=== PATIENT | male | born 1935 | race Caucasian/White ===

== ENCOUNTER 2017-10-06 16:26 | Inpatient (IN) | payer OTHER ==
[~2017-10-06] VITALS: Ht 182.9 cm; Wt 106.6 kg
--- NOTE | ~2017-10-06 | EKG ---
[address] [address] ELECTROCARDIOGRAM REPORT Name: GIRMA AGUILAR Room #: 450-P ADM IN M.R.#: [id number] Admission: 10/06/17 Attend Phys: Pio Little Discharge: Date of : 31 Report #: [id number] THIS REPORT FOR: //name// [facility] ED Test Date: 2017-10-06 Test Time: 16:40:06 Pat Name: GIRMA AGUILAR Department: Room: 450 P Gender: M Lime Slaker: NANI : 1935 Requested By: Pio Little Order Number: [id number] MD: Hemant Farah Measurements Intervals [place] Rate: 133 P: -71 AL: 131 QRS: 5 QRSD: 96 T: 36 QT: 342 QTc: 509 Interpretive Statements Atrial fibrillation Repolarization abnormality, prob rate related No previous ECG available for comparison Electronically Signed On 10-09-2017 7:57:18 CDT by Hemant Farah [email or web address] <ELECTRONICALLY SIGNED> By: Hemant Farah MD 10/09/17 0757 1640 MD MARLYN Rasheed
[2017-10-06 16:27] VITALS: BP 127/53
[2017-10-06 16:49] LABS: ABSOLUTE NEUTROPHILS 1.7 thou/uL (1.4-8.2); BASOPHILS 1.4 % (0.0-2.0); EOSINOPHILS 4.1 % (0.0-3.0); HEMOGLOBIN 11.5 gm/dL (14.0-18.0); LYMPHOCYTES 32.9 % (24.0-44.0); MCH 29.4 pg (26.0-34.0); MCHC 33.8 g/dL (28.0-37.0); MCV 87.1 fL (80.0-100.0); MONOCYTES 10.7 % (1.0-8.0); PLATELET COUNT 204 thou/uL (150-400); POLYS 50.9 % (36.0-66.0); RBC 3.91 mil/uL (4.50-6.00); RDW 14.9 % (10.5-14.5); WBC 3.3 thou/uL (4.0-11.0)
[2017-10-06 16:53] LABS: CALCIUM 9.4 mg/dL (8.5-10.1); CREATININE 2.1 mg/dL (0.7-1.3)
[2017-10-06 18:14] LABS: URINE BILIRUBIN NEGATIVE (Negative); URINE BLOOD NEGATIVE (Negative); URINE CLARITY CLEAR; URINE COLOR YELLOW; URINE GLUCOSE-RANDOM* NEGATIVE (Negative); URINE KETONES NEGATIVE (Negative); URINE LEUKOCYTES-REFLEX NEGATIVE (Negative); URINE NITRITE-REFLEX NEGATIVE (Negative); URINE PROTEIN (DIPSTICK) NEGATIVE (Negative); URINE SPECIFIC GRAVITY 1.015 (1.005-1.035); URINE UROBILINOGEN 0.2 E.U./dl (0.2-1.0)
[2017-10-06] MEDS ORDERED: LANTUS SOL100 UNIT/1 SUBQ (18:24)
[2017-10-06] MEDS ORDERED: GLIPIZIDE ER5 MG PO (18:24)
[2017-10-06] MEDS ORDERED: ASPIR 8181 MG PO (18:25)
[2017-10-06] MEDS ORDERED: LASIX 20 MG TAB20 MG PO (18:25)
[2017-10-06 18:30] LABS: AMP/METHAMP Negative (Negative); BARBITURATES Negative (Negative); BENZODIAZEPINES Negative (Negative); COCAINE Negative (Negative); METHADONE Negative (Negative); OPIATES Negative (Negative); PCP Negative (Negative)
[2017-10-06 18:51] LABS: CHOLESTEROL 175 mg/dL (<200); HDL CHOLESTEROL 43 mg/dL (>40); LDL CHOLESTEROL 122 mg/dL (<100); TC:HDL 4.1 Ratio (Not establshd); TRIGLYCERIDE 54 mg/dL (<150); VLDL 11 mg/dL (<40)
[2017-10-06 19:02] VITALS: BP 92/52
[2017-10-06 19:45] VITALS: BP 126/83
[2017-10-07 03:54] VITALS: BP 113/65
[2017-10-07 06:11] LABS: HEMATOCRIT 29.2 % (42.0-52.0); HEMOGLOBIN 10.1 gm/dL (14.0-18.0); MCH 29.8 pg (26.0-34.0); MCHC 34.4 g/dL (28.0-37.0); MCV 86.5 fL (80.0-100.0); RBC 3.38 mil/uL (4.50-6.00); RDW 14.6 % (10.5-14.5); WBC 3.4 thou/uL (4.0-11.0)
[2017-10-07 06:18] LABS: CALCIUM 8.5 mg/dL (8.5-10.1); PHOSPHORUS 3.5 mg/dL (2.5-4.9); POTASSIUM 3.2 mmol/L (3.5-5.1)
[2017-10-07 08:19] VITALS: BP 126/78
[2017-10-07 16:18] VITALS: BP 117/64
[2017-10-07 19:00] VITALS: BP 115/64
[2017-10-08 03:41] VITALS: BP 117/61
[2017-10-08 04:38] LABS: ALBUMIN 2.8 g/dL (3.4-5.0); CALCIUM 8.5 mg/dL (8.5-10.1); CREATININE 1.7 mg/dL (0.7-1.3); POTASSIUM 3.6 mmol/L (3.5-5.1)
[2017-10-08 07:30] VITALS: BP 123/70
[2017-10-08 15:30] VITALS: BP 128/74
[2017-10-08 20:00] VITALS: BP 132/72
[2017-10-09 04:30] VITALS: BP 132/72
[2017-10-09 04:52] LABS: ALBUMIN 2.9 g/dL (3.4-5.0); CALCIUM 8.3 mg/dL (8.5-10.1); CREATININE 1.6 mg/dL (0.7-1.3); POTASSIUM 3.9 mmol/L (3.5-5.1)
[2017-10-09 07:28] VITALS: BP 130/76
[2017-10-09 11:16] VITALS: BP 130/76
== END 2017-10-09 15:38 | disposition home health service (06) | DRG 682 ==
LOC: EDBD 16:26 → ER 16:26 → 4W 18:19 → EROBS 18:19 → 4W 19:26 → ENTRNSPT 10-09 15:42 → EDTRNSPTSTS 10-09 15:47
PROVIDERS: Emergency Medicine; Hospitalist
DX: N17.0 Acute kidney failure with tubular necrosis (principal); G93.40 Encephalopathy, unspecified; T67.0XXA Heatstroke and sunstroke, initial encounter; M62.82 Rhabdomyolysis; I10 Essential (primary) hypertension; E11.9 Type 2 diabetes mellitus without complications; E86.0 Dehydration; X58.XXXA Exposure to other specified factors, initial encounter; Z86.73 Personal history of transient ischemic attack (TIA), and cerebral infarction without residual deficits; Z79.4 Long term (current) use of insulin; Z79.82 Long term (current) use of aspirin; Z79.899 Other long term (current) drug therapy; Y93.89 Activity, other specified; Y92.89 Other specified places as the place of occurrence of the external cause; Y99.8 Other external cause status
CPT/HCPCS: 10045

== ENCOUNTER 2018-12-03 17:44 | Emergency (ER) | payer OTHER ==
[~2018-12-03] VITALS: Ht 182.9 cm; Wt 106.1 kg
[~2018-12-03 17:44] MED LIST: ASPIR 8181 MG PO; GLIPIZIDE ER5 MG PO; HYDROCHLOROTHIA25 M2 PO; KLOR-CON 1010 MEQ PO; LANTUS SOL100 UNIT/1 SUBQ; LASIX 20 MG TAB20 MG PO
[2018-12-03] MEDS ORDERED: PENICILLIN V P500 MG PO (18:11)
[2018-12-03 18:20] VITALS: BP 124/72
== END 2018-12-03 18:20 | disposition home or self-care (01) ==
LOC: ER 17:44
DX: K04.7 Periapical abscess without sinus (principal); I10 Essential (primary) hypertension; E11.9 Type 2 diabetes mellitus without complications; Z79.4 Long term (current) use of insulin; Z86.69 Personal history of other diseases of the nervous system and sense organs

== ENCOUNTER 2019-04-09 17:25 | Inpatient (IN) | payer OTHER ==
[~2019-04-09] VITALS: Ht 182.9 cm; Wt 119.9 kg
--- NOTE | ~2019-04-09 | HC ---
[facility] [place] [address] [place] [address] CONSULTATION Name: GIRMA AGUILAR Room #: 213-P ADM IN M.R.#: [id number] Admission: 04/09/19 Attend Phys: Stephon Emerson MD Discharge: Date of : 33 Report #: [id number] THIS REPORT FOR: //name// [facility] CONSULTATION REQUESTING PHYSICIAN: Dr. Dumont. CHIEF COMPLAINT: Spontaneous bacterial peritonitis. HISTORY OF PRESENT ILLNESS: The patient is an 83-year-old male who presented originally to [facility] on April 09, appeared to have multiple complications including hypoxic respiratory failure due to pneumonia. He was found to have group B strep septicemia subsequently and spontaneous bacterial peritonitis is felt to be the origin of this. The patient has also had bilateral lower extremity cellulitis. He was newly diagnosed with cirrhosis and ascites and thrombocytopenia was also found. He had a transfusion for anemia of chronic disease. Additionally, he has a history of cerebrovascular disease, status post stroke with right-sided weakness. At this point in time, the patient is listed as full code. The patient will awake to verbal stimuli. Denies any current discomfort including pain or air hunger. He wishes his daughter to make decisions for him. PAST MEDICAL HISTORY: Again, discovered to have cirrhosis. Additionally, hypertension, type 2 diabetes, right-sided weakness secondary to stroke, bilateral lower extremity venous stasis, dementia, CKD III, chronic neuropathy, anemia. FAMILY HISTORY: Unknown. SOCIAL HISTORY: No tobacco, alcohol or illicit drug use. ALLERGIES: No known drug allergies. MEDICATIONS: Currently, Lasix 20 mg daily, Augmentin, famotidine, heparin. REVIEW OF SYSTEMS: Difficult to obtain at this time, although he denies any kind of pain, air hunger, any nausea. PHYSICAL EXAMINATION: VITAL SIGNS: Temperature 36.6, pulse rate 98, respirations 20, blood pressure 141/64, 95% on room air. GENERAL: The patient is alert, but his attention level appears to be poor. He has poor immediate recall. [facility] [address] [place] [address] CONSULTATION Name: GIRMA AGUILAR Room #: 213-P ADM IN M.R.#: [id number] Admission: 04/09/19 Attend Phys: Stephon Emerson MD Discharge: Date of : 33 Report #: [id number] CARDIOVASCULAR: Appears to be regular rate and rhythm without murmur at this time. LUNGS: Anteriorly clear to auscultation. No respiratory distress, no accessory muscle use. ABDOMEN: Nontender to palpation. Positive bowel sounds noted, but they are diminished, not significantly distended. LABORATORY DATA: These include hemoglobin 7.9, platelets 138, creatinine 1.4, magnesium 1.7. ASSESSMENT AND PLAN: 1. Cirrhosis. This is a contributing factor overall. I have discussed with the patient's daughter that certainly spontaneous bacterial peritonitis does not anmol well for long-term prognosis; however, I did discuss that this alone may be amenable to further treatment and potentially in the future would be something that is manageable. However, the patient additionally has had poor p.o. intake and has dysphagia. Certainly, there is concern that he would have continued poor p.o. intake and therefore lead to overall high risk of mortality. PEG tube has been discussed. Certainly, GI had talked about this option; however, he may not be a good candidate certainly right now. This is possible in the future, but again given his cirrhosis, ascites and potential for recurrent spontaneous bacterial peritonitis, he may not be a good candidate for in the future. Certainly, I did present that to the daughter, did present that overall in these types of cases with multiple medical conditions, PEG tube alone may not be sufficient to improve the overall condition or life expectancy. However, I did discuss that this would be a good thing to discuss with family members. She has 7 siblings and will discuss that with those further, to discuss advanced directive in particular including CPR and mechanical ventilation and that that would be a reasonable thing to discuss as well with family. They will discuss and get back to me on decisions with regards to care. 2. Spontaneous bacterial peritonitis, again discussed as above. 3. Delirium, possible superimposed on dementia, but currently unable to make what appears to be competent or capacity decisions. Discussed this with daughter at this time. They are to meet to discuss further medical care. 4. Pneumonia, possibly of aspiration type, but certainly could be of other origin as well. I am concerned for dysphagia and then overall caloric intake. The patient may not have good prognosis secondary to this. We will continue to discuss with family as they meet and further discussion in the future. By: [id number] Fermin Aguilar DO /nt
[~2019-04-09 17:25] MED LIST changes: +PENICILLIN V P500 MG PO
[2019-04-09 17:26] VITALS: BP 145/71
[2019-04-09 18:05] LABS: ANION GAP 4 mmol/L (7-16); BUN 35 mg/dL (7-18); CALCIUM 9.2 mg/dL (8.5-10.1); CHLORIDE 107 mmol/L (98-107); CO2 28 mmol/L (21-32); CREATININE 1.9 mg/dL (0.7-1.3); GLUCOSE 94 mg/dL (74-106); POTASSIUM 5.8 mmol/L (3.5-5.1); SODIUM 139 mmol/L (136-145)
[2019-04-09 18:06] LABS: ABSOLUTE NEUTROPHILS 5.5 thou/uL (1.4-8.2); BASOPHILS 0.5 % (0.0-2.0); EOSINOPHILS 1.5 % (0.0-3.0); HEMOGLOBIN 7.8 gm/dL (14.0-18.0); LYMPHOCYTES 19.1 % (24.0-44.0); MCH 28.8 pg (26.0-34.0); MCHC 32.5 g/dL (28.0-37.0); MCV 88.7 fL (80.0-100.0); MONOCYTES 3.5 % (1.0-8.0); PLATELET COUNT 119 thou/uL (150-400); POLYS 75.4 % (36.0-66.0); RBC 2.71 mil/uL (4.50-6.00); RDW 17.1 % (10.5-14.5); WBC 7.2 thou/uL (4.0-11.0)
[2019-04-09 18:15] LABS: ALBUMIN 3.5 g/dL (3.4-5.0); SGOT 51 U/L (15-37); SGPT 34 U/L (30-65); TOTAL BILIRUBIN 0.4 mg/dL (<0.1-1.0); TOTAL PROTEIN 7.6 g/dL (6.4-8.2); TROPONIN-I <0.06 ng/mL (<0.06)
[2019-04-09 18:26] LABS: URINE BILIRUBIN NEGATIVE (Negative); URINE BLOOD NEGATIVE (Negative); URINE CLARITY CLEAR; URINE COLOR YELLOW; URINE GLUCOSE-RANDOM* NEGATIVE (Negative); URINE KETONES NEGATIVE (Negative); URINE LEUKOCYTES-REFLEX TRACE (Negative); URINE NITRITE-REFLEX NEGATIVE (Negative); URINE PROTEIN (DIPSTICK) NEGATIVE (Negative); URINE SPECIFIC GRAVITY 1.025 (1.005-1.035); URINE UROBILINOGEN 0.2 E.U./dl (0.2-1.0)
[2019-04-09 18:34] LABS: BE(vivo) -3.4 mmol/L (-2 to +3); PCO2 34.7 mmHg (35.0-45.0); PO2 98.4 mmHg (80.0-100.0); pH 7.399 (7.360-7.450); sO2 97.5 % (92.0-98.0)
[2019-04-09] MEDS ORDERED: FUROSEMIDE 20 M20 MG PO (22:00)
[2019-04-09] MEDS ORDERED: LISINOPRIL10 MG PO (22:01)
[2019-04-09] MEDS ORDERED: GLIPIZIDE 10 MG10 MG PO (22:01)
[2019-04-09] MEDS ORDERED: KLOR-CON M2020 MEQ PO (22:02)
[2019-04-09] MEDS ORDERED: TOPROL XL50 MG PO (22:02)
[2019-04-09] MEDS ORDERED: GABAPENTIN 100100 MG PO (22:02)
[2019-04-09] MEDS ORDERED: ATORVASTATIN CA80 MG PO (22:02)
[2019-04-09 23:55] VITALS: BP 110/52
[2019-04-10] VITALS (24 sets, daily range): BP systolic 103–134; BP diastolic 53–73
--- NOTE | 2019-04-10 06:28 | NUR ---
PATIENT ADMITTED FROM ED DEPARTMENT AT 0100, ALERT TO SELF AND SITUATION, NOT ORIENTED TO TIME. PATIENT COMPLAINED OF ABDOMINAL PAIN RELIEVED WITH MEDICATION. SHORTNESS OF BREATH WITH INCREASED ACTIVITY. PLAN TO HAVE PARACENTESIS TODAY. PLAN OF CARE DISCUSSED WITH PATIENT. NO SIGNS OF ACUTE DISTRESS NOTED AT THIS TIME. WILL CONTINUE TO MONITOR.
[2019-04-10 06:31] LABS: INR 1.1; PROTIME 11.7 Seconds (9.3-11.4)
[2019-04-10 06:33] LABS: % SATURATION 5 % (20-39); IRON 10 ug/dL (65-175); TIBC 184 ug/dL (250-450)
[2019-04-10 06:35] LABS: BASOPHILS 0.3 % (0.0-2.0); CALCIUM 7.9 mg/dL (8.5-10.1); CREATININE 1.9 mg/dL (0.7-1.3); EOSINOPHILS 0.1 % (0.0-3.0); POTASSIUM 5.5 mmol/L (3.5-5.1); RBC 2.16 mil/uL (4.50-6.00); RDW 17.1 % (10.5-14.5)
[2019-04-10 06:38] LABS: ABSOLUTE NEUTROPHILS 9.5 thou/uL (1.4-8.2); LYMPHOCYTES 15.9 % (24.0-44.0); MCH 28.9 pg (26.0-34.0); MCHC 32.4 g/dL (28.0-37.0); MONOCYTES 4.7 % (1.0-8.0); PLATELET COUNT 96 thou/uL (150-400)
[2019-04-10 06:39] LABS: HEMOGLOBIN 6.2 gm/dL (14.0-18.0)
[2019-04-10 06:40] LABS: HEMATOCRIT 19.2 % (42.0-52.0)
--- NOTE | 2019-04-10 08:38 | EKG ---
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
[2019-04-10 10:49] LABS: FOLIC ACID 16.5 ng/mL (8.6-58.9)
[2019-04-10 11:01] LABS: CLARITY TURBID; COLOR PINK; SOURCE ABDOMINAL FLUID; TOTAL VOLUME 15 mL
[2019-04-10 12:56] LABS: BF NUCLEATED CELLS 5252; BF RBC 21547
[2019-04-10 13:15] LABS: BF NEUTROPHILS 8
[2019-04-10 13:18] LABS: BF MACROPHAGE 29
[2019-04-10 15:44] LABS: HEMATOCRIT 20.4 % (42.0-52.0); HEMOGLOBIN 6.5 gm/dL (14.0-18.0)
--- NOTE | 2019-04-10 15:48 | NUR ---
Case opened to follow for dc planning. Pt is currently in ICU with sev sepsis and pneumonia. He is alert and able to report that he is a ltc resident at [facility] for about a year now. He is up in a w/c at the long-term via a lift. He notes that his dtr Fernanda is his dpoa and dtr oJse Luis the alternate. A copy of the document is on the chart. Fernanda was here earlier today. [facility] is holding his bed and the dc search planner will fax them his admission h/p. Dc plan is to return to the long-term at when medically stable. Support provided. Will follow.
--- NOTE | 2019-04-10 16:10 | NUR ---
FAXED CLINICAL UPDATE TO [facility] SPOKE WITH BARBER IN ADM SHE RECEIVED UPDATE. DP TO FOLLOW.
--- NOTE | 2019-04-10 16:43 | NUR ---
PT IS ALERT TO SELF AND PLACE CONFUSED ON TIME. PARACENTESIS TODAY 1 LITER TAKEN OFF TODAY. AND SENT TO LAB. 1 UNIT OF BLOOD GIVEN FOR LOW HEMOGLOBIN. ABDOMEN IS ROUND AND DISTENDED BOWEL SOUNDS HYPOACTIVE. CONDOM CATH PLACED ON PT DUE TO INCONTINENT OF URINE IN THE BED. LUNGS ARE DIMINISHED ON 3 LITERS NASAL CANULA. FAMILY AT BEDSIDE TODAY TO VISIT FOR SUPPORT. TRANSFER ORDERS TO ROOM 213 AWAITING A ROOM AVAIALBE PER NURSING
[2019-04-10 17:58] LABS: ABSOLUTE RETIC COUNT 0.0343 10^6/uL; OBSERVED RETIC COUNT 1.51 % (0.6-2.6)
--- NOTE | 2019-04-10 19:44 | NUR ---
PATIENT ARRIVED FROM ICU VIA, ALERT TO SELF AND SITUATION, VSS AND ST ON THE MONITOR. AND WILL CONTINUE POC.
[2019-04-11 03:53] VITALS: BP 107/58
--- NOTE | 2019-04-11 06:48 | NUR ---
ASSUMED PT CARE AT 1900. PT A/OX3, OCCASIONALLY CONFUSED, EASY TO REORIENT. VITALSIGNS STABLE, ASSESSMENT CHARTED. NO COMPLAINTS OF PAIN. PT CONTINUES TO HAVE PRODUCTIVE COUGH. SPUTUM SAMPLE SENT TO LAB. PT RECIEVED 1 UNIT OF BLOOD, TOLERATED APPROPRIATELY, NO REACTIONS, VITAL SIGNS REMAINED STABLE, BEFORE, DURING AND AFTER TRANSFUSION. PT RESTED WELL THROUGH THE NIGHT. PROGRESSING TOWARD PLAN OF CARE, WILL CONTINUE TO MONITOR.
[2019-04-11 08:00] VITALS: BP 114/61
[2019-04-11 08:03] LABS: ABSOLUTE NEUTROPHILS 7.4 thou/uL (1.4-8.2); BASOPHILS 0.3 % (0.0-2.0); EOSINOPHILS 0.2 % (0.0-3.0); HEMATOCRIT 21.5 % (42.0-52.0); LYMPHOCYTES 22.2 % (24.0-44.0); MCH 28.5 pg (26.0-34.0); MCHC 32.6 g/dL (28.0-37.0); MCV 87.4 fL (80.0-100.0); POLYS 73.3 % (36.0-66.0); RBC 2.46 mil/uL (4.50-6.00); RDW 17.9 % (10.5-14.5); WBC 10.1 thou/uL (4.0-11.0)
[2019-04-11 08:07] LABS: PLATELET COUNT 96 thou/uL (150-400)
[2019-04-11 08:23] LABS: ALBUMIN 2.5 g/dL (3.4-5.0); CALCIUM 7.9 mg/dL (8.5-10.1); CREATININE 1.8 mg/dL (0.7-1.3); MAGNESIUM 2.5 mg/dL (1.8-2.4); POTASSIUM 4.7 mmol/L (3.5-5.1); TOTAL BILIRUBIN 0.6 mg/dL (<0.1-1.0); TOTAL PROTEIN 6.2 g/dL (6.4-8.2)
[2019-04-11 12:00] VITALS: BP 115/71
--- NOTE | 2019-04-11 13:59 | NUR ---
WOUND CARE CONSULT; NO WOUNDS WERE IDENTIFIED. THE BILATERAL LE(S) HAVE S/S CONSISTENT WITH CHRONIC EDEMA WITH DRY, SCALLY SKIN PRESENT BELOW THE KNEES. RECOMMENDATIONS; AMYLACTIN CREAM DAILY TO BILATERAL LE DISCUSSED WITH STAFF
[2019-04-11 14:11] LABS: BODY FLUID LDH 218 IU/L (()); BODY FLUID PROTEIN 3.6 g/dL (())
--- NOTE | 2019-04-11 15:46 | 2DMMODE ---
[facility] [address] [place] [address] 2 D/M-MODE ECHOCARDIOGRAM Name: LAURENGIRMA Room #: 213-P ADM IN M.R.#: [id number] Admission: 04/09/19 Attend Phys: Stephon Emerson MD Discharge: Date of : 33 Report #: [id number] THIS REPORT FOR: //name// APPROVED REPORT Study performed: 04/11/2019 14:57:04 EXAM: Comprehensive 2D, Doppler, and color-flow Echocardiogram Patient Location: Bedside Room #: 213 Status: routine BSA: 2.39 HR: 96 bpm BP: 115/71 mmHg Rhythm: NSR Other Information Study Quality: Good Indications Pulmonary vascular congestion. Respiratory failure. Hx: HTN, DM, CVA 2D Dimensions RVDd: 40.84 mm IVSd: 11.19 (7-11mm) LVOT Diam: 25.67 (18-24mm) LVDd: 50.40 mm PWd: 8.90 (7-11mm) Ascending Ao: 39.62 (22-36mm) LVDs: 38.27 (25-40mm) Aortic Root: 44.30 mm Volumes Left Atrial Volume (Systole) Single Plane 4CH: 73.42 mL Single Plane 2CH: 80.96 mL LA ESV Index: 37.00 mL/m2 Aortic Valve AoV Peak Jonas.: 1.40 m/s AO Peak Gr.: 7.84 mmHg LVOT Max P.22 mmHg LVOT Max V: 1.14 m/s ANTHONY Vmax: 4.22 cm2 Mitral Valve E/A Ratio: 1.4 MV Decel. Time: 161.89 ms [facility] [address] [place] [address] 2 D/M-MODE ECHOCARDIOGRAM Name: GIRMA AGUILAR Room #: 213-P ADM IN .R.#: [id number] Admission: 04/09/19 Attend Phys: Stephon Emerson MD Discharge: Date of : 33 Report #: [id number] MV E Max Jonas.: 0.90 m/s MV A Jonas.: 0.63 m/s MV PHT: 46.95 ms IVRT: 34.60 ms Pulmonary Valve PV Peak Jonas.: 1.14 m/s PV Peak Gr.: 5.19 mmHg Pulmonary Vein P Vein S: 0.63 m/s P Vein D: 0.51 m/s P Vein S/D Ratio: 1.24 Tricuspid Valve TR Peak Jonas.: 3.02 m/s RAP Estimate: 10.00 mmHg TR Peak Gr.: 37.00 mmHg PA Pressure: 47.00 mmHg Left Ventricle The left ventricle is normal size. Mild basal septal hypertrophy is present. Left ventricular systolic function is normal. LVEF is 55%. This study is not technically sufficient to allow evaluation of the LV diastolic function. Right Ventricle The right ventricle is normal size. The right ventricular systolic function is normal. Atria Left atrium is mildly dilated. The right atrium size is normal. Aortic Valve The aortic valve is normal in structure. Mild aortic regurgitation. There is no aortic valvular stenosis. Mitral Valve Mitral valve leaflets are mildly thickened. Moderate mitral regurgitation. Tricuspid Valve The tricuspid valve is normal in structure. Mild to moderate tricuspid regurgitation. Estimated PAP is 45-50mmHg. Pulmonic Valve The pulmonary valve is normal in structure. Trace pulmonic [facility] [address] [place] [address] 2 D/M-MODE ECHOCARDIOGRAM Name: LAURENGIRMA Room #: 213-P ADM IN M.R.#: [id number] Admission: 04/09/19 Attend Phys: Stephon Emerson MD Discharge: Date of : 33 Report #: [id number] regurgitation. Great Vessels Aortic root is dilated at 4.4cm. Ascending aorta is dilated at 4.0cm. Pericardium There is no pericardial effusion. Large left and right pleural effusions noted. <Conclusion> The left ventricle is normal size. LVEF is 55%. Left atrium is mildly dilated. The aortic valve is normal in structure. Mild aortic regurgitation. Mitral valve leaflets are mildly thickened. Moderate mitral regurgitation. The tricuspid valve is normal in structure. Mild to moderate tricuspid regurgitation. Estimated PAP is 45-50mmHg. The pulmonary valve is normal in structure. Trace pulmonic regurgitation. There is no pericardial effusion. <ELECTRONICALLY SIGNED> By: Paulie Hubbard MD 04/11/19 1546 1546 1546 Paulie Hubbard MD /INF
[2019-04-11 16:00] VITALS: BP 120/70
--- NOTE | 2019-04-11 18:01 | NUR ---
ASSESMENT DOCUMENTED, ALERT AND ORIENTED X4 AND HAS PERIODS OF CONFUSION.VSS AND AFIB/SR ON THE MONITOR. Q2 POSITIONED FOR COMFORT. S/B WOUND CARE TODAY RECOMENDATION IS IN THE CHART. S/B GI PLS SEE MD PROGRESS NOTES. WILL CONTINUE WITH POC.
[2019-04-11 20:00] VITALS: BP 119/64
[2019-04-11 21:05] LABS: IgG 1270 mg/dL (700-1600)
[2019-04-11 23:08] LABS: HAV IgM AB (ANTI-HAV IgM) Negative (Negative); HEPATITIS B SURFACE AG Negative (Negative); HEPATITIS C VIRUS AB <0.1 (0.0-0.9)
[2019-04-12 03:21] VITALS: BP 119/64
[2019-04-12 04:33] LABS: HEMATOCRIT 22.2 % (42.0-52.0); MCH 28.2 pg (26.0-34.0); MCHC 31.7 g/dL (28.0-37.0); MCV 89.1 fL (80.0-100.0); RBC 2.49 mil/uL (4.50-6.00); RDW 18.3 % (10.5-14.5)
[2019-04-12 04:35] LABS: ALBUMIN 2.5 g/dL (3.4-5.0); DIRECT BILIRUBIN 0.2 mg/dL (<0.1-0.3); MAGNESIUM 2.5 mg/dL (1.8-2.4); TOTAL BILIRUBIN 0.3 mg/dL (<0.1-1.0); TOTAL PROTEIN 6.3 g/dL (6.4-8.2)
--- NOTE | 2019-04-12 04:51 | NUR ---
ASSUMED PT CARE AT 1900. PT A/OX3, ASSESSMENT CHARTED. ON 3L 02, VITAL SIGNS STABLE. NO COMPLAINTS OF PAIN. PT RESTED WELL THROUGH THE NIGHT. WILL CONTINUE TO MONITOR.
[2019-04-12 08:00] VITALS: BP 105/64
[2019-04-12 12:11] LABS: ANA INTERPRETATION Negative (Negative); CERULOPLASMIN 43.8 mg/dL (16.0-31.0)
[2019-04-12 12:19] VITALS: BP 124/70
--- NOTE | 2019-04-12 13:07 | PATH ---
[facility] [address] [place] [address] PATHOLOGY RPT PROCEDURE Name: GIRMA AGUILAR Room #: 213-P ADM IN M.R.#: [id number] Admission: 04/09/19 Date of : 33 Discharge: Report #: [id number] Path Case #: [id number] Note [facility] Accession Number: [id number] TESTS RESULT FLAG UNITS REF RANGE LAB Clinician Provided Cytology Information No. of containers..01 Other (Miscellaneous) Source: 01 ABDOMINAL FLUID DIAGNOSIS: 02 ABDOMINAL FLUID NEGATIVE FOR MALIGNANT EPITHELIAL CELLS. MESOTHELIAL CELLS ARE PRESENT. THIS INTERPRETATION INCLUDES EVALUATION OF A CELL BLOCK. Pathologist ICD10: 02 A41.9 Signed out by: Valeria Toro MD, Pathologist NPI- [id number] Performed by: Tereso Hernandez, Study Assistant ([facility]) Gross description: 01 3ML, PINKISH WHITE, CLOUDY /LCS 05/07/1840 0000 Local FLAG LEGEND: L-Low Normal,H-High Normal,LL-Alert Low,HH-Alert High <-Panic Low,>-Panic High,A-Abnormal,AA-Critical Abnormal Performed at: [address] [place] [address] Mauricio Reis MD, [address] [address] Valeria Toro MD, Specimen Comment: A courtesy copy of this report has been sent to [phone] Specimen Comment: [id number] Specimen Comment: Report sent to Specimen Comment: A duplicate report has been generated due to demographic updates. Performed at: [address], [place], [place] [id number] MD Mauricio Reis MD Phone: [phone]
--- NOTE | 2019-04-12 13:42 | NUR ---
No weekend dc anticipated. Chantal in admissions at [facility] updated. They are holding his ltc bed and would like clinical updates faxed on Monday.
[2019-04-12 16:00] VITALS: BP 124/65
--- NOTE | 2019-04-12 17:15 | NUR ---
ASSUMED CARE OF PT AT SHIFT CHANGE. ASSESSMENT CHARTED. MEDS GIVEN PER JUL. VSS. NO C/O PAIN. PT STILL CONSTIPATED. PT HAS EXTERNAL CATHETER DRAINING WELL. WORKED WITH OT. IN ISOLATION FOR MRSA. WAITING ON MEDICAL RECORDS FROM RESEARCH. WILL CONTINUE TO MONITOR AND FOLLOW POC.
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
[2019-04-12 19:55] VITALS: BP 131/76
[2019-04-13 04:14] VITALS: BP 130/69
--- NOTE | 2019-04-13 04:20 | NUR ---
PT ALERT AND ORIENTED. DENIES PAIN. NO REPORTS OF CHEST PAIN. SOB NOTED WITH ACTIVITIES SUCH TURNS. WHEEZING IN LUNG TREADWELL. NEBLIZER TREATMENTS ADMINISTERED BY RT. NO SIGN OF DISTRESS. WILL CONTINUE TO MONITOR.
[2019-04-13 04:47] LABS: ALBUMIN 2.4 g/dL (3.4-5.0); CALCIUM 7.8 mg/dL (8.5-10.1); CREATININE 1.3 mg/dL (0.7-1.3); POTASSIUM 4.4 mmol/L (3.5-5.1); TOTAL BILIRUBIN 0.4 mg/dL (<0.1-1.0); TOTAL PROTEIN 5.9 g/dL (6.4-8.2)
[2019-04-13 04:52] LABS: HEMATOCRIT 22.4 % (42.0-52.0); HEMOGLOBIN 7.1 gm/dL (14.0-18.0); MCH 28.2 pg (26.0-34.0); MCHC 31.7 g/dL (28.0-37.0); MCV 88.9 fL (80.0-100.0); RBC 2.52 mil/uL (4.50-6.00); RDW 17.5 % (10.5-14.5); WBC 5.7 thou/uL (4.0-11.0)
[2019-04-13 07:40] VITALS: BP 109/68
[2019-04-13 10:12] LABS: SOURCE ABDOMINAL
--- NOTE | 2019-04-13 10:50 | EKG ---
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[place] : 1935 Requested By: Stephon Emerson Order Number: [id number] MD: Hemant Farah Measurements Intervals [place] Rate: 94 P: 37 SC: 208 QRS: 33 QRSD: 83 T: 38 QT: 358 QTc: 448 Interpretive Statements Sinus rhythm Multiple premature complexes, vent & supraven Low voltage, extremity leads Compared to ECG 04/09/2019 17:45:06 Early repolarization no longer present Electronically Signed On 04-13-2019 10:50:08 DIRECTOR OF PHYSICAL EDUCATION by Hemant Farah [email or web address] <ELECTRONICALLY SIGNED> By: Hemant Farah MD 04/13/19 1050 0843 Hemant Farah MD /VANESSA
[2019-04-13 12:00] VITALS: BP 126/55
--- NOTE | 2019-04-13 12:35 | NUR ---
AAOX4. NO COMPLAINTS. SA WITH PVC'S AND PAC'S PER TELE. DR. RICH CONSULTED AND SEES. COMPLETE CARES. ISOLATION. STOOL SENT FOR OCCULT BLOOD NEGATIVE. CONDOM CATH PATENT BUT LEAKS. WILL CONTINUE TO MONITOR CLOSELY.
[2019-04-13 15:30] VITALS: BP 146/77
--- NOTE | 2019-04-13 18:48 | NUR ---
RECEIVED PT'S CARE AROUND 07; PT. ON BED RESTING WITH EYES CLOSED; NOTICED ON THE MONITOR IRREGULAR RYTHM; POSSIBLE AFIB; EKG ORDER PER PROTOCOL; ANTIQUE JEWELRY REPAIRER LAND DEVELOPMENT PROJECT MANAGER ROUNDING; NOTIFIED; PHYSICIAN NOTIFIED; ORDERS RECEIVED; DURING ASSESSMENT NO C/O PAIN; AM MEDICATIONS GIVEN; HAD BM; SMALL HARD; STOOL SAMPLE TAKEN; AROUND 1000 REPORT GIVEN TO BELLE SCHNEIDER;
[2019-04-13 20:30] VITALS: BP 131/67
[2019-04-14 04:43] LABS: ALBUMIN 2.5 g/dL (3.4-5.0); CALCIUM 8.4 mg/dL (8.5-10.1); CREATININE 1.2 mg/dL (0.7-1.3); PHOSPHORUS 2.8 mg/dL (2.5-4.9); POTASSIUM 4.6 mmol/L (3.5-5.1)
[2019-04-14 04:45] VITALS: BP 115/61
--- NOTE | 2019-04-14 05:06 | NUR ---
PT ALERT AND ORIENTED . DENIES PAIN. Q2 TURNS TOLERATED. SINUS ARRTHYMIA ON THE MONITOR. NO BM OVERNIGHT. PT DENIES ANY CHEST PAIN. REQUESNT PACs OF THE MONITOR.
[2019-04-14 07:14] VITALS: BP 140/82
--- NOTE | 2019-04-14 08:35 | HC ---
[facility] [place] [address] CONSULTATION Name: GIRMA AGUILAR Room #: 213-P ADM IN M.R.#: [id number] Admission: 04/09/19 Attend Phys: Stephon Emerson MD Discharge: Date of : 31 Report #: [id number] THIS REPORT FOR: //name// CC: Stephon Gregory REASON FOR CONSULTATION: Elevated creatinine. REASON FOR PRESENTATION: Mental status changes and fever. HISTORY OF PRESENT ILLNESS: This is an 83-year-old with past medical history of diabetes mellitus, hypertension, who is maintained on furosemide, lisinopril as an outpatient. He does have chronic kidney disease dating back to 2010. In fact, he was hospitalized at [facility] at that time with a creatinine of 2.0. The patient presented to the Emergency Room to be evaluated because of acute mental status changes and fever. The patient was found to have bacteremia, and was admitted to be further evaluated. Hospital course also revealed that the patient has some ascites for which he is currently being evaluated by the GI team. Creatinine has been in the 1.8-1.9. Currently, he is being followed by Infectious Disease team for his bacteremia. I was asked to evaluate for his chronic kidney disease. ALLERGIES: None. MEDICATIONS: As an outpatient include the followin. Zestril. 2. Lasix. 3. Glucotrol. 4. Metoprolol. 5. Neurontin. 6. Potassium. 7. Atorvastatin. 8. Vancomycin and Zosyn. PAST MEDICAL HISTORY: 1. Hypertension. 2. Diabetes mellitus. 3. Chronic kidney disease. 4. Right-sided hemiparesis. 5. Dementia. 6. Anemia. 7. New diagnosis of ascites. FAMILY HISTORY: Unable to obtain given the patient's mental compromise and dementia. [facility] [address] [place] [address] CONSULTATION Name: GIRMA AGUILAR Room #: 213-P ADM IN M.R.#: [id number] Admission: 04/09/19 Attend Phys: Stephon Emerson MD Discharge: Date of : 33 Report #: [id number] REVIEW OF SYSTEMS: GENERAL: He reports to weakness. CARDIOVASCULAR: Significant for shortness of breath. PULMONARY: No cough or hemoptysis, but significant for shortness of breath. GASTROINTESTINAL: No nausea or vomiting. Decreased oral intake. GENITOURINARY: No frequency, no urgency. MUSCULOSKELETAL: Ribs pain. PHYSICAL EXAMINATION: GENERAL: He is alert, awake. VITAL SIGNS: Blood pressure is 119/64. HEAD AND NECK: No jugular venous distention. CHEST: Decreased air entry bilaterally with crackles. CARDIOVASCULAR: No rub. ABDOMEN: Soft with ascites. EXTREMITIES: Lower extremities, +2 edema. LABORATORY DATA: Reviewed. White blood cell count 8.0, hemoglobin 7.0, platelet 102. Sodium 144, BUN 37, creatinine 1.8. Blood culture positive for Strep. ASSESSMENT, IMPRESSION AND PLAN: 1. Chronic kidney disease at baseline. 2. Bacteremia. 3. Ascites, anemia, thrombocytopenia. 4. Diabetes mellitus. 5. Hypertension. 6. He has chronic kidney disease dating back to 2010. Creatinine seems to be at his baseline. He is currently being worked up for his new onset ascites by the GI team. 7. Discontinue IV fluid. 8. Gentle diuresis with local measures for his edema. 9. Primary team is addressing his blood sugar issues. 10. ID is following and managing his bacteremia. <ELECTRONICALLY SIGNED> By: Rj Rincon MD 04/14/19 0835 [id number] Rj Rincon MD /nt
[2019-04-14 12:00] VITALS: BP 133/84
[2019-04-14 16:50] VITALS: BP 139/80
--- NOTE | 2019-04-14 17:40 | NUR ---
ASSUMED CARE OF PT AT SHIFT CHANGE. ASSESSMENTS CHARTED. MEDS GIVEN PER JUL. VSS. A&OX4 BUT CONFUSED AT TIMES. NO C/O PAIN. DC'D O2 WITH NO C/O SOA, WILL RESTART IF DE-SATS. LOTION APPLIED TO LEGS, THEN DOUBLE LAYER OF [facility] RN. WILL CONTINUE TO MONITOR AND FOLLOW POC.
[2019-04-14 21:27] VITALS: BP 145/84
--- NOTE | 2019-04-15 03:44 | NUR ---
ASSUMED PT CARE AT 1900. VSS. PT A&0X4, PT IS WEAK, Q2 TURN COMPLETED ALLOWED BY THE PATIENT, EXTERNAL GUTIERREZ CATH IN PLACE, EDEMA ON THE R SIDE SIGNIFICANTLY MORE THAN THE LEFT SIDE, PT HR WAS LESS THAN 110 ALL NIGHT, SOME PACs ALSO NOTED ON THE MONITOR. PT IS STABLE FOR NOW, WILL CONTINUE TO MONITOR PER POC.
[2019-04-15 05:22] LABS: HEMATOCRIT 24.8 % (42.0-52.0); MCH 28.3 pg (26.0-34.0); MCHC 32.3 g/dL (28.0-37.0); MCV 87.8 fL (80.0-100.0); RBC 2.83 mil/uL (4.50-6.00); RDW 17.2 % (10.5-14.5); WBC 5.6 thou/uL (4.0-11.0)
[2019-04-15 05:39] LABS: ALBUMIN 2.5 g/dL (3.4-5.0); CALCIUM 8.1 mg/dL (8.5-10.1); CREATININE 1.2 mg/dL (0.7-1.3); POTASSIUM 4.6 mmol/L (3.5-5.1); TOTAL BILIRUBIN 0.4 mg/dL (<0.1-1.0); TOTAL PROTEIN 6.1 g/dL (6.4-8.2)
[2019-04-15 05:51] VITALS: BP 144/82
[2019-04-15 08:00] VITALS: BP 124/73
[2019-04-15 11:00] VITALS: BP 142/66
--- NOTE | 2019-04-15 15:34 | NUR ---
FAXED CLINICAL UPDATE TO [facility] RECEIVED CONFIRMATION AND LEFT MSG WITH BARBER IN ADM. DP TO FOLLOW.
[2019-04-15 16:00] VITALS: BP 137/70
--- NOTE | 2019-04-15 17:35 | NUR ---
PT CARE ASSUMED APPROX 0700. ASSESSMENTS CHARTED. PT DENIES PAIN AND SOA. VSS. TRANSFERRED WITH P/T. TOLERATING POC. PT CXR REPORTED WORSE. CHANGES MADE TO POC. TURNING PT Q2HRS AND PRN. BS WNL. PT DENIES QUESTIONS AND CONCERNS REGARDING POC. NO DISTRESS NOTED.
--- NOTE | 2019-04-15 20:21 | NUR ---
VAT CONSULTED FOR A PIV FOR THIS PT. PT RECEIVING IRON IV, ETC. PT HAD A 20G IN RT HAND AND 18G RT FOREARM. ARM IS EDEMETOUS, PAINFUL AND POSSIBLE ERYTHEMA. SCANNED HIS RT FOREARM VESSELS AND COMPLETE OCCLUSION NOTED FROM HIS RT LOWER FOREARM UP TO HIS AC. RECOMMEND A US TO RULE OUT THROMBUS VS SEVERE PHLEBITIS. PT HAS RESIDUAL EXTREME WEAKNESS IN HIS RT FROM A CVA.
[2019-04-15 20:51] VITALS: BP 123/65
[2019-04-16 04:23] VITALS: BP 126/66
--- NOTE | 2019-04-16 05:21 | NUR ---
PT CURRENTLY RESTING IN BED. ABLE TO SLEEP THROUGHOUT NIGHT. PT REMAINS ON RA. F/U NEED FOR DOPPLER OF RIGHT ARM D/T PICC NURSE LOOKING AT IT AND SAYS THERE ARE DEFINITELY CLOTS FROM RUNNING IRON IV THROUGH THE TWO PIV HE HAD TO THAT RIGHT ARM. SHE WAS ABLE TO PLACE A NEW PIV DURING DAY SHIFT YESTERDAY TO LEFT UPPER ARM.
[2019-04-16 08:00] VITALS: BP 140/72
[2019-04-16 12:06] VITALS: BP 122/72
[2019-04-16 14:01] LABS: CREATININE 1.5 mg/dL (0.7-1.3); MAGNESIUM 1.8 mg/dL (1.8-2.4); POTASSIUM 4.2 mmol/L (3.5-5.1)
[2019-04-16 14:05] LABS: CALCIUM 9.1 mg/dL (8.5-10.1)
--- NOTE | 2019-04-16 14:40 | NUR ---
Faxed clinical information to [facility] for possible skilled care.
--- NOTE | 2019-04-16 15:12 | NUR ---
Nutrition: pt admitted with severe sepsis, pneumonia, aspiration related and AFUA. Seen for LOS. ST follows for dysphagia and need for pureed with honey thick liquids diet. Even on modified diet pt showing concerns for aspiration. Hx of dementia, CVA, DM. New dx liver cirrhosis. Weights increasing > 50# from admit, edema present. On lasix. Oral intake is fair, 50-100% last few days. Receives magic cup and ensure pudding daily. PO intake of supplements is variable. RN to ask ST to re-eval. Unsure of aggressiveness of POC. Place as low risk and follow for ? PEG if unsafe to feed orally.
[2019-04-16 16:11] VITALS: BP 139/67
--- NOTE | 2019-04-16 18:32 | NUR ---
RECEIVED PT'S CARE AROUND 0720; PT. ON BED; RESTING WITH EYES CLOSED; DURING ASSESSMENT AOX4; AM MEDICATIONS GIVEN; ABLE TO SWALLOW; NO C/O PAIN; DR. KEMAR PAGE; NOTIFIED ABOUT POSSIBLE BLOOD CLOT ON EVAN; REQUESTED AM LABS; SA ON THE MONITOR; NEW IV STARTED BY IV TEAM; NO C/O PAIN THROUGH THE DAY; IMAGINE RESULTS BACK; PHYSICIAN NOTIFIED; PRESSURE WOUND OVER BUTTOCKS; PICTURES TAKEN; TURN FROM SIDE TO SIDE; NEW EXTERNAL CATH APPLIED; ASSESMENT CHARGED; FOLLOWING POC; WILL PASS ON REPORT;
[2019-04-16 19:20] VITALS: BP 134/75
--- NOTE | 2019-04-17 04:22 | NUR ---
ASSUMED CARE AT 1900. PT ALERT AND ORIENTED. EXTERNAL MALE CATHETER IN PLACE. GOOD URINE OUTPUT. Q2 TURNS. BARRIER CREAM TO THE COCCYX FOR SKIN TEAR. RIGTH ARM ELEVATED. PT DENIES CHEST PAIN. VITALS STABLE. O2 SATS STABLE ON ROOM AIR. WILL CONTINUE WITH CURRENT PLAN OF CARE.
[2019-04-17 05:20] LABS: HEMATOCRIT 24.4 % (42.0-52.0); HEMOGLOBIN 7.9 gm/dL (14.0-18.0); MCH 28.1 pg (26.0-34.0); MCHC 32.2 g/dL (28.0-37.0); MCV 87.3 fL (80.0-100.0); RBC 2.8 mil/uL (4.50-6.00); RDW 17.2 % (10.5-14.5); WBC 5.2 thou/uL (4.0-11.0)
[2019-04-17 05:25] LABS: CALCIUM 8.7 mg/dL (8.5-10.1); CREATININE 1.4 mg/dL (0.7-1.3); MAGNESIUM 1.7 mg/dL (1.8-2.4); POTASSIUM 4.3 mmol/L (3.5-5.1)
[2019-04-17 05:34] VITALS: BP 137/69
[2019-04-17 08:56] VITALS: BP 143/53
--- NOTE | 2019-04-17 10:01 | NUR ---
WOUND CARE FOLLOW UP; I WAS CONSULTED BY THE RN TODAY RE; A NEW WOUND WAS DISCOVERED. I ASSESSED THE WOUND WITH THE RN'S ASSISTANCE. THE LEFT BUTTOCKS HAS A SMALL OPEN AREA .3 X .3 X 0.1. THERE IS ANOTHER WOUND TO THE BILATERAL BUTTOCKS/PERIRECTAL AREAS. MY OPINION THE ETIOLOGY IS CONSISTANT WITH INCONTINENT/MOISTURE RELATED DERMATITIS. RECCOMENDATIONS; ZGUARD TO BOTH AREAS AND ADD A LOW AIR LOSS BED PUMP.
[2019-04-17 12:19] VITALS: BP 145/67
--- NOTE | 2019-04-17 14:09 | NUR ---
spoke with patient alerted ST to see him again regarding aspiration. Patient reports "I eat fine." Patient appears to not understand he is possibly aspirating. ST masters completed. Sp with RN who reports she has spoken with phys he may be calling family to discuss pallative care. Updated [facility].
[2019-04-17 16:18] VITALS: BP 141/74
--- NOTE | 2019-04-17 20:02 | NUR ---
RECEIVED PT'S CARE AROUND 0710; PT. ON BED RESTING; DURING ASSESSMENT NO C/O PAIN; IV MEDICATION GIVEN; PO MEDICATION ON HOLD DUE TO WHEN ATTEMPTED TO GIVE PO ANTIBIOTIC PT. COUGH AFTER SWALLOWING MEDICATION; PHYSICIAN NOTIFIED; MEDICATION ON HOLD UNTIL ST RE-ASSESSMENT; AROUND 1300 ST[address] ROUNDING ON PT.; PER ST. REPORT PT. CHOKING FROM TIME TO TIME; PHYSICIAN NOTIFIED; PER ORDER HOLD MEDICATION UNTIL FURTHER NOTICE; DAUGHTER NOTIFIED ABOUT NEW FINDINGS; PT'S DAUGHTER INFORMATION GIVEN TO PHYSICIAN; PIPE CUTTER NOTIFIED; PROCEDURE ORDERS NOTICED; GI CONTACTED & CLARIFY DUE TO ASCITES; ORDER CLARIFY; AROUND 1800 DR. AGUILAR ROUNDING ON PT.; DR. CINTRON ON FLOOR; CONTINUE PT. WITH ORDER DIET; NOTIFIED; ASSESSMENT CHARGED; FOLLOWING POC; PASSED ON REPORT;
[2019-04-17 20:38] VITALS: BP 141/64
--- NOTE | 2019-04-18 04:14 | NUR ---
ASSUMED CARE AT 1900. PT ALERT AND ORIENTED. 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 O2 SATS MAINTAIN > 90 ON RA. VITALS STABLE. FREQUENT REPOSITION. PT HAS A PRODUCTIVE BAIGE COUGH, POSSIBLY ASPIRATING DURING ORAL INTAKES. NO BM SINCE 04/15/19, REFUSED HS MIRALAX. FAMILY WAS AT BEDSIDE DURING CHANGE OF SHIFT. N0 NEW INTERVENTIONS IN PLACE. WILL CONTINUE WITH CURRENT PLAN OF CARE.
[2019-04-18 05:44] VITALS: BP 114/55
[2019-04-18 08:00] VITALS: BP 141/61
--- NOTE | 2019-04-18 10:54 | NUR ---
WOUND CARE F/U assessed buttocks/perirectal area, wounds stable, scant drainage, encouraged off loading/pressure relief, zguard applied RECOMMENDATIONS cont w/ current tx zguard bid and prn, off loading/pressure relief, turn q2, cont low air loss pump to bed, bar staff DA informed of recommendations
[2019-04-18 12:00] VITALS: BP 136/60
[2019-04-18] MEDS ORDERED: AUGMENTIN400 MG/53 PO (13:51)
--- NOTE | 2019-04-18 14:13 | NUR ---
Case discussed with the care team. Dr. Christianson met with the pt and talked with his dtr Frenanda regarding goals of care, aspiration risk, and over all prognosis last pm. The pt is being dc'd back to terminal supervisor care at [facility] today. Dtr and pt updated at bedside. Hospice info visit and DNR recommended. Dtr is agreeable. The pt is a&ox3 but not able to have full conversation about code status. He want to eat and says his lungs feel good. Hospice options and benefits reveiwed with his dtr/dpoa via phone. She would like to use [facility]. DC product planner to fax referral for info visit. Their liason was notified of above and will work the dtr to coordinate a family meeting with them and the pt some time in the next couple of days. Pt's dtr not able to come into the hospital today but she indicates she will f/u with the pt at the intermediate regarding his code status. Pt and dtr agreeable to return to ltc today. Chantal in admissions is aware and agreeable. Dc product planner to fax final orders and setup stretcher van for this afternoon. Chart copy in progress.
--- NOTE | 2019-04-18 15:53 | NUR ---
FAXED REFERRAL TO [facility]. CONFIRMED WITH KIAN IN INTAKE THAT SHE RECEIVED REFERRAL AND THEY WILL FOLLOW-UP WITH PATIENT'S DAUGHTER (MAX MUHAMMAD) REGARDING SETTING UP TIME FOR EVALUATION AT [facility].
--- NOTE | 2019-04-18 16:11 | NUR ---
FAXED DISCHARGE SUMMARY TO [facility]. SPOKE TO BARBER AND CONFIRMED THAT SHE RECEIVED. SHE ARRANGED TRANSPORTATION BY [facility] TO FACILITY FROM 17:30-18:00. NOTIFED THE DAUGHTER (DPOA) MAX MCKEON OF TIME OF TRANSPORT. ALSO, NOTIFIED DAUGHTER OF REFERRAL TO [facility]. UNIT NOTIFIED AND CHART COPY COMPLETED BY US. RN TO CALL REPORT TO [phone].
--- NOTE | 2019-04-18 16:42 | NUR ---
ASSUMMED PT CARE AT APPROXIMATELY 0700. PT A&O X4. ASSESSMENT CHARTED. FALL PRECAUTIONS IN PLACE. PT DENIES HAVING CHEST PAIN. PT DENIES HAVING SOB. PT DENIES HAVING ACUTE PAIN. PT DISCHARGING BACK TO [facility] CONSULT TO HOSPICE CARE. PT EDUCATED ABOUT DISCHARGE PLANS. PT STATED UNDERSTANDING AND DENIED HAVING FURTHER QUESTIONS. VITAL SIGNS STABLE. IV DC. TELE DC. CONDOM CATH DC. PT MORNING BLOOD SUGAR LOW. PT RECIEVED APPLE JUICE. BLOOD SUGARS STABLE. NPO DIET DC. PT BACK ON MECHANICAL SOFT C NECTAR THICKENED LIQUIDS. PT HAD BM X2. PT COMFORTABLE IN BED. PT DENIES HAVING FURTHER CONCERNS. AWAITING MEDICAL TRANSPORT TO TRANSPORT PT BACK TO HIS FACILITY. PT'S DISCHARGE PACKET SENT C PT TO FACILITY.
[2019-04-18 17:07] VITALS: BP 138/67
== END 2019-04-18 17:46 | DRG 871 ==
LOC: ER 17:25 → EROBS 20:19 → 2N 20:19 → ICU 20:19 → 2N 04-10 17:40
PROVIDERS: Hospitalist; Internal Medicine; Internal Medicine Gastroenterology; Nurse Practitioner; Nurse Practitioner Acute Care; Physician Assistant; ADMIT Internal Medicine
DX: A41.9 Sepsis, unspecified organism (principal); J96.01 Acute respiratory failure with hypoxia; K65.2 Spontaneous bacterial peritonitis; J69.0 Pneumonitis due to inhalation of food and vomit; S22.31XA Fracture of one rib, right side, initial encounter for closed fracture; N17.9 Acute kidney failure, unspecified; J91.8 Pleural effusion in other conditions classified elsewhere; I69.351 Hemiplegia and hemiparesis following cerebral infarction affecting right dominant side; R18.8 Other ascites; F05 Delirium due to known physiological condition; L03.116 Cellulitis of left lower limb; L03.115 Cellulitis of right lower limb; E46 Unspecified protein-calorie malnutrition; I48.20 Chronic atrial fibrillation, unspecified; I82.621 Acute embolism and thrombosis of deep veins of right upper extremity; E11.22 Type 2 diabetes mellitus with diabetic chronic kidney disease; E87.5 Hyperkalemia; F03.90 Unspecified dementia, unspecified severity, without behavioral disturbance, psychotic disturbance, mood disturbance, and anxiety; I12.9 Hypertensive chronic kidney disease with stage 1 through stage 4 chronic kidney disease, or unspecified chronic kidney disease; I89.0 Lymphedema, not elsewhere classified; E78.5 Hyperlipidemia, unspecified; E11.42 Type 2 diabetes mellitus with diabetic polyneuropathy; I87.2 Venous insufficiency (chronic) (peripheral); K74.60 Unspecified cirrhosis of liver; D69.6 Thrombocytopenia, unspecified; W18.39XA Other fall on same level, initial encounter; B95.1 Streptococcus, group B, as the cause of diseases classified elsewhere; D63.8 Anemia in other chronic diseases classified elsewhere; N18.3 Chronic kidney disease, stage 3 (moderate); E11.649 Type 2 diabetes mellitus with hypoglycemia without coma; N32.89 Other specified disorders of bladder; N40.0 Benign prostatic hyperplasia without lower urinary tract symptoms; E04.2 Nontoxic multinodular goiter; Z68.35 Body mass index [BMI] 35.0-35.9, adult; Z86.718 Personal history of other venous thrombosis and embolism; K72.90 Hepatic failure, unspecified without coma; R65.20 Severe sepsis without septic shock; Y93.89 Activity, other specified; Y92.89 Other specified places as the place of occurrence of the external cause; Z99.3 Dependence on wheelchair; Z79.01 Long term (current) use of anticoagulants; Z79.2 Long term (current) use of antibiotics; Y99.8 Other external cause status; Z79.82 Long term (current) use of aspirin; Z79.899 Other long term (current) drug therapy
CPT/HCPCS: 10081; 10203; 85076

== ENCOUNTER → 2019-06-28 | Outpatient (CLI) | payer OTHER ==
[~2019-06-28] MED LIST changes: +ATORVASTATIN CA80 MG PO; +AUGMENTIN400 MG/53 PO; +FUROSEMIDE 20 M20 MG PO; +GABAPENTIN 100100 MG PO; +GLIPIZIDE 10 MG10 MG PO; +KLOR-CON M2020 MEQ PO; +LISINOPRIL10 MG PO; +TOPROL XL50 MG PO
[2019-06-28 12:13] LABS: CLARITY TURBID; COLOR PINK; SOURCE ABDOMINAL FLUID; TOTAL VOLUME 60 mL
[2019-06-28 12:38] LABS: BF NUCLEATED CELLS 4559; BF RBC 19496
[2019-06-28 13:30] LABS: BF NEUTROPHILS 4
[2019-06-29 18:11] LABS: BODY FLUID ALBUMIN 1.4 g/dL (Not Estab.); BODY FLUID AMYLASE 41 U/L (()); BODY FLUID GLUCOSE 112 mg/dL (()); BODY FLUID LDH 173 IU/L (()); BODY FLUID PROTEIN 3.4 g/dL (())
[2019-07-02 10:16] LABS: SOURCE ABDOMINAL
--- NOTE | 2019-07-02 14:07 | PATH ---
[facility] [address] [place] [address] PATHOLOGY RPT PROCEDURE Name: GIRMA AGUILAR Room #: REG JOSE Gonzales.Audrey.#: [id number] Admission: 06/28/19 Date of : 33 Discharge: Report #: [id number] Path Case #: [id number] Note [facility] Accession Number: [id number] TESTS RESULT FLAG UNITS REF RANGE LAB Clinician Provided Cytology Information No. of containers..01 Other (Miscellaneous) Source: 01 ABDOMINAL FLUID DIAGNOSIS: 02 ABDOMINAL FLUID NEGATIVE FOR MALIGNANT EPITHELIAL CELLS. REACTIVE CELLULAR CHANGES NOTED. CELLULAR DEGENERATION IS PRESENT. THIS INTERPRETATION INCLUDES EVALUATION OF A CELL BLOCK. 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 Pathologist ICD10: 02 R18.8 Signed out by: 02 Valeria Toro MD, Pathologist NPI- [id number] Performed by: 01 Annabelle Hensley, [place] ([facility]) Gross description: 01 15ML, MILKY PINK, 1 TP 1 CB /LCS 06/28/2019 1805 Local FLAG LEGEND: L-Low Normal,H-High Normal,LL-Alert Low,HH-Alert High <-Panic Low,>-Panic High,A-Abnormal,AA-Critical Abnormal Performed at: [address] [place] [address] Mauricio Reis MD, [address] [address] Valeria Toro MD, Specimen Comment: A courtesy copy of this report has been sent to [phone] Specimen Comment: A duplicate report has been generated due to demographic updates. Performed at: [address], [place], [place] [address] MD Mauricio Reis MD Phone: [phone]
== END | disposition home or self-care (01) ==
LOC: ULTRA 10:44
PROVIDERS: Family Medicine
DX: R18.8 Other ascites (principal); N18.9 Chronic kidney disease, unspecified; Z98.890 Other specified postprocedural states; Z79.899 Other long term (current) drug therapy; Z87.01 Personal history of pneumonia (recurrent)

== ENCOUNTER → 2019-08-02 | Outpatient (CLI) | payer OTHER ==
[2019-08-02 12:36] LABS: CLARITY TURBID; COLOR YELLOW; SOURCE RIGHT CHEST; TOTAL VOLUME 60 mL
[2019-08-02 13:43] LABS: BF NUCLEATED CELLS 3217; BF RBC 3381
[2019-08-02 14:36] LABS: BF MACROPHAGE 0; BF NEUTROPHILS 1
[2019-08-02 18:30] LABS: SOURCE RIGHT CHEST
[2019-08-04 09:07] LABS: BODY FLUID ALBUMIN 2.6 g/dL (Not Estab.); BODY FLUID AMYLASE 60 U/L (()); BODY FLUID GLUCOSE 96 mg/dL (()); BODY FLUID LDH 179 IU/L (()); BODY FLUID PROTEIN 4.3 g/dL (())
== END ==
LOC: ULTRA 10:05
PROVIDERS: Family Medicine
DX: K85.90 Acute pancreatitis without necrosis or infection, unspecified (principal)

== ENCOUNTER → 2019-09-12 | Outpatient (CLI) | payer OTHER ==
[2019-09-12 13:27] LABS: SOURCE RIGHT CHEST; TOTAL VOLUME 60 mL
[2019-09-12 13:28] LABS: CLARITY CLOUDY; COLOR AMBER; SOURCE RIGHT CHEST
[2019-09-12 14:06] LABS: BF NUCLEATED CELLS 3532; BF RBC 29904
[2019-09-12 14:18] LABS: BF MACROPHAGE 8; BF NEUTROPHILS 1
[2019-09-13 18:08] LABS: BODY FLUID ALBUMIN 2.7 g/dL (Not Estab.); BODY FLUID AMYLASE 59 U/L (()); BODY FLUID GLUCOSE 88 mg/dL (()); BODY FLUID LDH 218 IU/L (()); BODY FLUID PROTEIN 3.9 g/dL (())
== END | disposition home or self-care (01) ==
LOC: ULTRA 10:02
PROVIDERS: Family Medicine
DX: J90 Pleural effusion, not elsewhere classified (principal); R18.8 Other ascites; N18.9 Chronic kidney disease, unspecified; Z98.890 Other specified postprocedural states; Z79.899 Other long term (current) drug therapy

== ENCOUNTER 2019-10-17 11:37 | Inpatient (IN) | payer OTHER ==
[~2019-10-17] VITALS: Ht 182.9 cm; Wt 92.7 kg
[2019-10-17 11:38] VITALS: BP 133/80
[2019-10-17] MEDS ORDERED: LASIX 40 MG TAB40 MG PO (12:00)
[2019-10-17] MEDS ORDERED: GLIPIZIDE 10 MG10 MG PO (12:01)
[2019-10-17] MEDS ORDERED: KRISTALOSE20 GM PO (12:01)
[2019-10-17] MEDS ORDERED: PROAIR HFA8.5 GM INH (12:01)
[2019-10-17 12:28] LABS: HEMATOCRIT 27.6 % (42.0-52.0); HEMOGLOBIN 9.2 gm/dL (14.0-18.0); MCH 30.7 pg (26.0-34.0); MCHC 33.2 g/dL (28.0-37.0); MCV 92.4 fL (80.0-100.0); RBC 2.99 mil/uL (4.50-6.00); RDW 15.7 % (10.5-14.5); WBC 3.5 thou/uL (4.0-11.0)
[2019-10-17 12:31] LABS: ANION GAP 2 mmol/L (7-16); BUN 22 mg/dL (7-18); CALCIUM 8.2 mg/dL (8.5-10.1); CHLORIDE 106 mmol/L (98-107); CO2 31 mmol/L (21-32); CREATININE 1.2 mg/dL (0.7-1.3); GLUCOSE 70 mg/dL (74-106); POTASSIUM 4.2 mmol/L (3.5-5.1); SODIUM 139 mmol/L (136-145)
[2019-10-17 12:40] LABS: TROPONIN-I <0.06 ng/mL (<0.06)
[2019-10-17 13:27] LABS: ABSOLUTE NEUTROPHILS 1.5 thou/uL (1.4-8.2); PLATELET COUNT 77 thou/uL (150-400); PLATELET ESTIMATE DECREASED
[2019-10-17 13:28] LABS: ANISOCYTOSIS SLIGHT; POIKILOCYTOSIS SLIGHT
[2019-10-17 14:50] LABS: ALBUMIN 2.9 g/dL (3.4-5.0); DIRECT BILIRUBIN < 0.1 mg/dL (<0.1-0.2); SGOT 37 U/L (15-37); SGPT 14 U/L (30-65); TOTAL BILIRUBIN 0.6 mg/dL (0.2-1.0); TOTAL PROTEIN 6.4 g/dL (6.4-8.2)
[2019-10-17 15:09] LABS: INR 1.1; PROTIME 11.1 Seconds (9.3-11.4)
[2019-10-17 15:16] VITALS: BP 115/66
[2019-10-17 16:25] VITALS: BP 110/62
[2019-10-17 16:27] VITALS: BP 128/67
--- NOTE | 2019-10-17 18:38 | NUR ---
ASSUMMED PT CARE AT APPROXIMATELY 1630. PT A&O X4, FORGETFUL AT TIMES. ASSESSMENT CHARTED. FALL PRECAUTIONS IN PLACE. PT DENIES HAVING CHEST PAIN. PT DENIES HAVING SOB. PT DENIES HAVING ACUTE PAIN. ADMISSION COMPLETE. Q2 TURNS. HYPOGLYCEMIC WHEN ARRIVED TO UNIT. INFORMED DR. CINTRON. DEXTROSE 50% GIVEN. BLOOD SUGAR STABLE. VITAL SIGNS STABLE. PT COMFORTABLE IN BED. PT DENIES HAVING FURTHER CONCERNS.
[2019-10-17 20:50] VITALS: BP 134/76
[2019-10-18 00:22] VITALS: BP 128/68
[2019-10-18 03:58] LABS: PROTIME 10.4 Seconds (9.3-11.4)
[2019-10-18 04:45] VITALS: BP 116/60
[2019-10-18 07:48] VITALS: BP 127/58
--- NOTE | 2019-10-18 07:59 | EKG ---
[facility] [place] [address] ELECTROCARDIOGRAM REPORT Name: GIRMA AGUILAR Room #: 202-P ADM IN M.R.#: [id number] Admission: 10/17/19 Attend Phys: Alfred Dumont MD Discharge: Date of : 33 Report #: [id number] THIS REPORT FOR: cc: Geoffrey Gregory MD, Srinath MD Couchonnal, Luis F. 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
[2019-10-18 08:12] LABS: HEMOGLOBIN 9.2 gm/dL (14.0-18.0); MCH 31.6 pg (26.0-34.0); MCHC 33.9 g/dL (28.0-37.0); MCV 93.1 fL (80.0-100.0); RBC 2.9 mil/uL (4.50-6.00); RDW 16.1 % (10.5-14.5); WBC 3.5 thou/uL (4.0-11.0)
[2019-10-18 08:20] LABS: ALBUMIN 2.9 g/dL (3.4-5.0); CALCIUM 8.5 mg/dL (8.5-10.1); CREATININE 1.3 mg/dL (0.7-1.3); MAGNESIUM 2.3 mg/dL (1.8-2.4); POTASSIUM 4.3 mmol/L (3.5-5.1); TOTAL BILIRUBIN 0.6 mg/dL (0.2-1.0); TOTAL PROTEIN 6.4 g/dL (6.4-8.2)
--- NOTE | 2019-10-18 10:19 | NUR ---
chart review. cm tried to speak with pt via phone call and no answer. cm spoke with conor thompson at [facility] where pt is ltc. nurse reported " he never went with hospice he refused so he gets paracentesis or thoracentesis if needed and then got cxr and it shower chf so he back in hospital. he is able to feed him self meals slowly, on thicken liquids and mech soft diet. uses wheel chair and is able to self propel wheel chair with his feet. needs sit to stand lift for transfers and bathroom."/nurse. will cont following as needed for dc needs.
[2019-10-18 11:50] VITALS: BP 92/46
[2019-10-18 13:19] LABS: CLARITY CLOUDY; COLOR YELLOW; SOURCE CHEST; TOTAL VOLUME 60 mL
[2019-10-18 13:31] LABS: BF NUCLEATED CELLS 2842 /mm3; BF RBC 4685 /mm3
[2019-10-18 14:41] LABS: BF MACROPHAGE 15 %; BF NEUTROPHILS 0 %
--- NOTE | 2019-10-18 14:42 | NUR ---
PT IS FROM [facility] FAXED CLINICAL UPDATE RECEIVED CONFIRMATION AND LEFT MSG WITH BARBER IN ADM POSS DC OVER WEEKEND.
[2019-10-18 16:18] VITALS: BP 96/55
--- NOTE | 2019-10-18 18:42 | NUR ---
ASSESSMENT DOCUMENTED. VSS. HYPOGLYCEMIA NOTED AND TREATED PER EMAR. PT ASYMPTOMATIC. Q2 TURNS. SPEECH EVAL DONE AT THE BEDSIDE. DIET RECOMMENDED PUREED WITH HONEY THICKENED LIQUIDS. PT TOLERATING WELL. US GUIDED THORACENTESIS AND PARACENTESIS DONE TODAY. 1000 ML REMOVED FROM RUQ/THORACENTESIS. 800 ML REMOVED FROM PARACENTESIS. PT A&Ox4. PT SIGNED CONSENTS FOR BOTH PROCEDURES PRIOR TO THEM BEING DONE. PT STATES, "WHY AM I STILL HERE?" PT ALSO STATES "NOBODY TOOK FLUID" FROM HIM TODAY. IT WAS EXPLAINED TO THE PT THAT BOTH PROCEDURES WERE DONE TODAY AND DOCUMENTED SO. BANDAIDS C/D/I WHERE NEEDLE WAS PLACED. PT CONTINUES TO STATE NO PROCEDURE WAS DONE. PT RESTING IN BED WITH CALL LIGHT IN REACH AND BED ALARM ACTIVATED. WILL CONTINUE TO MONITOR.
[2019-10-18 19:52] VITALS: BP 142/67
--- NOTE | 2019-10-19 04:34 | NUR ---
SLEPT PART OF SHIFT. PATIENT STILL STATES THEY DID NOT DO PARACENTESIS AND THORACENTESIS YESTERDAY. ASSURED TEST WAS DONE AND SPECIMAN WAS SENT. WORKING ON GOALS AND PLAN OF CARE FOR NOC. PROGRESSING SLOWLY TOWARDS DISCHARGE GOALS BACK TO [facility]. DENIES COMPLAINTS OF PAIN. MALE CATH REMAINS IN PLACE AND LEAKS AT TIME. CONTINUE TO ASSES CLOSELY.
[2019-10-19 04:35] VITALS: BP 114/69
[2019-10-19 04:39] LABS: HEMATOCRIT 26.7 % (42.0-52.0); HEMOGLOBIN 8.9 gm/dL (14.0-18.0); MCH 30.9 pg (26.0-34.0); MCHC 33.4 g/dL (28.0-37.0); MCV 92.5 fL (80.0-100.0); RBC 2.88 mil/uL (4.50-6.00); RDW 15.9 % (10.5-14.5); WBC 2.9 thou/uL (4.0-11.0)
[2019-10-19 04:54] LABS: CALCIUM 8.3 mg/dL (8.5-10.1); CREATININE 1.3 mg/dL (0.7-1.3); POTASSIUM 4.1 mmol/L (3.5-5.1)
[2019-10-19 07:08] VITALS: BP 107/65
[2019-10-19 07:36] LABS: SOURCE CHEST
[2019-10-19 12:07] VITALS: BP 121/71
[2019-10-19 14:07] LABS: BODY FLUID ALBUMIN 2.5 g/dL (Not Estab.); BODY FLUID AMYLASE 58 U/L (()); BODY FLUID GLUCOSE 86 mg/dL (())
[2019-10-19 16:23] VITALS: BP 121/65
--- NOTE | 2019-10-19 16:48 | NUR ---
ASSESSMENT DOCUMENTED. PT ALERT AND ORIENTED WITH FORGETFULNESS. DENIED HAVING PAIN. TURNED AND REPOSITIONED Q2 AND NEEDED. APPETITE GOOD. DAUGHTER UPDATED ON PT'S PROGRESS. NO CONCERNS AT THIS TIME. WILL CONTINUE TO MONITOR.
[2019-10-19 19:45] VITALS: BP 132/59
--- NOTE | 2019-10-20 03:44 | NUR ---
SLEPT PART OF SHIFT. REPOSITIONED EVERY 2-3 HOURS FOR COMFORT AND SKIN CARE. WORKING ON GOALS AND PLAN OF CARE FOR NOC. AWAITING CULTURE RESULTS. DENIES COMPLAINTS OF PAIN AND STATES SHORTNESS OF AIR IS BETTER. REMAINS ORIENTED TIMES 4 BUT FORGETFUL AT TIMES. MALE CATH PLACED TO ASSIST WITH INCONTINENCE AND SKIN CARE. PROGRESSING SLOWLY TOWARDS DISCHARGE GOALS SLOWLY BACK TO CM. CONTINUE TO ASSES CLOSELY.
[2019-10-20 03:51] LABS: HEMATOCRIT 26.1 % (42.0-52.0); HEMOGLOBIN 8.6 gm/dL (14.0-18.0); MCH 30.4 pg (26.0-34.0); MCHC 32.9 g/dL (28.0-37.0); MCV 92.3 fL (80.0-100.0); RBC 2.83 mil/uL (4.50-6.00); RDW 15.3 % (10.5-14.5)
[2019-10-20 04:06] LABS: CALCIUM 7.9 mg/dL (8.5-10.1); CREATININE 1.2 mg/dL (0.7-1.3); MAGNESIUM 2.1 mg/dL (1.8-2.4); POTASSIUM 4.3 mmol/L (3.5-5.1)
[2019-10-20 04:45] VITALS: BP 101/57
[2019-10-20 07:30] VITALS: BP 124/75
[2019-10-20 11:30] VITALS: BP 105/56
[2019-10-20 16:30] VITALS: BP 108/57
--- NOTE | 2019-10-20 16:37 | NUR ---
PT ALERT AND ORIENTED. VSS. ASSESSMENT CHARTED. DENIED HAVING PAIN OR DISCOMFORT. TURNED AND REPOSITIONED Q 2 HOURS AND NEEDED. APPETITE GOOD. NO CARDIAC OR RESPIRATORY DISTRESS NOTED. PT PROGRESSING WELL TOWARDS DISCHARGE GOAL. WILL CONTINUE TO MONITOR.
[2019-10-20 19:42] VITALS: BP 104/59
[2019-10-21 04:26] VITALS: BP 132/69
[2019-10-21 04:52] LABS: HEMATOCRIT 24.9 % (42.0-52.0); HEMOGLOBIN 8.4 gm/dL (14.0-18.0); MCH 30.8 pg (26.0-34.0); MCHC 33.5 g/dL (28.0-37.0); RBC 2.71 mil/uL (4.50-6.00); RDW 15.2 % (10.5-14.5); WBC 3.1 thou/uL (4.0-11.0)
[2019-10-21 05:05] LABS: CALCIUM 7.8 mg/dL (8.5-10.1); CREATININE 1.1 mg/dL (0.7-1.3); MAGNESIUM 2.1 mg/dL (1.8-2.4); POTASSIUM 4.4 mmol/L (3.5-5.1)
--- NOTE | 2019-10-21 05:06 | NUR ---
SLEPT PART OF SHIFT PAST WATCHING TV. DENIES COMPLAINTS OF PAIN OR SHORTNESS OF AIR. REPOSTIONED FOR SKIN CARE AND COMFORT NEEDED. PROGRESSING SLOWLY TOWARDS POSSIBLE TX BACK TO CM TODAY. WORKING ON GOALS AND PLAN OF CARE FOR NOC. CONTINUE TO MONITOR CLOSELY.
[2019-10-21 08:20] VITALS: BP 105/51
[2019-10-21 11:15] VITALS: BP 103/60
--- NOTE | 2019-10-21 13:08 | NUR ---
PT DISCHARGING TODAY BACK TO [facility] FAXED DC ORDERS/SUMMARY TO FACILITY SPOKE WITH SELENA IN ADM SHE RECEIVED ORDERS AND ARRANGED TRANSPORT BY [facility] FOR 1400 TODAY. NOTIFIED PT'S DTR/DPOA (MAX) OF DC AND TIME OF TRANSPORT. UNIT NOTIFIED AND CHART COPY PER US. RN TO CALL REPORT TO [phone].
--- NOTE | 2019-10-21 14:03 | NUR ---
ASSUMMED PT CARE AT APPROXIMATELY 0700. PT A&O X4. FORGETFUL AT TIMES. PT C HX OF DEMENTIA. ASSESSMENT CHARTED. FALL PRECAUTIONS IN PLACE. PT DENIES HAVING CHEST PAIN. PT DENIES HAVING SOB. PT DENIES HAVING ACUTE PAIN. PT DISCHARGING BACK TO [facility]. [facility]LE [facility]EED GAVE REPORT TO FACILITY. [facility] STATED UNDERSTANDING AND DENIED HAVING FURTHER QUESTIONS. IV DC. TELE DC. HYPOGLYCEMIC AT BEGINNING OF SHIFT. HYPOGLYCEMIA RESOLVED. BLOOD SUGARS STABLE. VITAL SIGNS STABLE. PT RECIEVING MEDICAL TRANSPORT TO FACILITY. INFORMATION PACKET SENT C PT. BELONGINGS SENT C PT. EDUCATED PT AND PT'S FAMILY REGAURDING POC. PT AND PT'S FAMILY STATED UNDERSTANDING AND DENIED HAVING FURTHER QUESTIONS. PT COMFORTABLE. PT DENIES HAVING FURTHER CONCERNS.
--- NOTE | 2019-10-21 14:03 | NUR ---
ASSUMED PATIENT CARE AT APPROXMATELY 0700 WITH PRECEPTOR BELLE ROBERSON. PATIENT REMAINED AWAKE/ ORIENTED THROUGHOUT SHIFT. NO ACUTE COMPLAINTS OF PAIN OR SHORTNESS OF BREATH. PATIENT DISCHARGED TO [facility] THIS SHIFT VIA STRETCHER. REPORT CALLED TO LINDSAY AT FACILITY AND VERBALIZED UNDERSTANDING OF RELAYED INFORMATION. REMOVED TELE MONITOR AND PIV PRIOR TO DISCHARGE. ALL PATIENT BELONGINGS TAKEN WITH HIM AT DISCHARGE.
[2019-10-22 04:07] LABS: GLYCOHEMOGLOBIN (HGB A1C) 4.5 % (4.8-5.6)
--- NOTE | 2019-10-23 14:07 | PATH ---
[facility] [place] [place] [address] PATHOLOGY RPT PROCEDURE Name: GIRMA AGUILAR Room #: 202-P DIS IN M.R.#: [id number] Admission: 10/17/19 Date of : 31 Discharge: 10/21/19 Report #: [id number] Path Case #: [id number] Note [facility] Accession Number: [id number] TESTS RESULT FLAG UNITS REF RANGE LAB Clinician Provided Cytology Information No. of containers..01 Other (Miscellaneous) Source: 01 PLEURAL FLUID DIAGNOSIS: 02 PLEURAL FLUID NEGATIVE FOR MALIGNANT EPITHELIAL CELLS. REACTIVE MESOTHELIAL CELLS ARE PRESENT. THIS INTERPRETATION INCLUDES EVALUATION OF A CELL BLOCK. NUMEROUS LYMPHOCYTES PRESENT, SEE COMMENT. Comment: Examination shows few reactive mesothelial cells present in a background of numerous lymphocytes. The previous specimen was sent for flowcytometric analysis ([id number]) and it showed monotypic B-cell population. The study is not repeated on the current specimen. Morphologically, lymphocytes resemble the ones noted in the prior specimen. Please refer that report for complete details. Pathologist ICD10: 02 I50.33 Signed out by: Valeria Toro MD, Pathologist NPI- [id number] Performed by: Brandee Estrada, Local Operator (ASCP) Gross description: 01 10ML, CLOUDY YELLOW, 1 TP 1 CB /LCS 10/18/2019 1756 Local FLAG LEGEND: L-Low Normal,H-High Normal,LL-Alert Low,HH-Alert High <-Panic Low,>-Panic High,A-Abnormal,AA-Critical Abnormal Performed at: 01 [facility] [address] [place] [address] Mauricio Reis MD, [address] [address] Valeria Toro MD, Specimen Comment: A courtesy copy of this report has been sent to [phone], [id number] [address] PATHOLOGY RPT PROCEDURE Name: LAURENGIRMA Room #: 202-P DIS IN M.R.#: [id number] Admission: 10/17/19 Date of : 31 Discharge: 10/21/19 Report #: [id number] Path Case #: [id number] Specimen Comment: [id number] Specimen Comment: Report sent to / DR LUIS Performed at: 01 [facility] Sylvie Hernandez [address], [place], [place] [id number] MD Mauricio Reis MD Phone: [phone]
[2019-10-24 17:07] LABS: BODY FLUID LDH 222 IU/L (())
== END 2019-10-21 14:20 | DRG 291 ==
LOC: ER 11:37 → 2N 14:54 → EROBS 14:54 → 2N 16:44
PROVIDERS: Emergency Medicine; ADMIT Internal Medicine; ATTEND Internal Medicine
PROC: 0W993ZZ Drainage of Right Pleural Cavity, Percutaneous Approach (ICD-10-PCS; principal; 2019-10-18)
PROC: 0W9G3ZZ Drainage of Peritoneal Cavity, Percutaneous Approach (ICD-10-PCS; principal; 2019-10-18)
DX: I13.0 Hypertensive heart and chronic kidney disease with heart failure and stage 1 through stage 4 chronic kidney disease, or unspecified chronic kidney disease (principal); K65.9 Peritonitis, unspecified; I50.33 Acute on chronic diastolic (congestive) heart failure; R18.8 Other ascites; I69.351 Hemiplegia and hemiparesis following cerebral infarction affecting right dominant side; J90 Pleural effusion, not elsewhere classified; K72.90 Hepatic failure, unspecified without coma; K74.60 Unspecified cirrhosis of liver; K75.81 Nonalcoholic steatohepatitis (NASH); E87.79 Other fluid overload; N18.3 Chronic kidney disease, stage 3 (moderate); E11.22 Type 2 diabetes mellitus with diabetic chronic kidney disease; I87.8 Other specified disorders of veins; F03.90 Unspecified dementia, unspecified severity, without behavioral disturbance, psychotic disturbance, mood disturbance, and anxiety; D64.9 Anemia, unspecified; E78.5 Hyperlipidemia, unspecified; K80.20 Calculus of gallbladder without cholecystitis without obstruction; E11.40 Type 2 diabetes mellitus with diabetic neuropathy, unspecified; I50.9 Heart failure, unspecified; D63.8 Anemia in other chronic diseases classified elsewhere; D69.6 Thrombocytopenia, unspecified; G47.00 Insomnia, unspecified; Z79.899 Other long term (current) drug therapy
CPT/HCPCS: 10081; 10797

== ENCOUNTER → 2020-01-22 | Outpatient (CLI) | payer OTHER ==
[~2020-01-22] MED LIST changes: +KRISTALOSE20 GM PO; +LASIX 40 MG TAB40 MG PO; +PROAIR HFA8.5 GM INH
== END ==
LOC: ULTRA 09:52
PROVIDERS: ATTEND Family Medicine
DX: R16.1 Splenomegaly, not elsewhere classified (principal); R14.0 Abdominal distension (gaseous); J90 Pleural effusion, not elsewhere classified; R18.8 Other ascites

== ENCOUNTER 2020-03-08 10:34 | Emergency (ER) | payer OTHER ==
[~2020-03-08] VITALS: Ht 182.9 cm; Wt 90.7 kg
[2020-03-08 10:35] VITALS: BP 52/30
[2020-03-08 11:08] LABS: HEMATOCRIT 29.1 % (42.0-52.0); HEMOGLOBIN 9.3 gm/dL (14.0-18.0); MCH 30.1 pg (26.0-34.0); MCHC 31.9 g/dL (28.0-37.0); MCV 94.3 fL (80.0-100.0); RBC 3.08 mil/uL (4.50-6.00); RDW 16.2 % (10.5-14.5); WBC 3.3 thou/uL (4.0-11.0)
[2020-03-08 11:29] LABS: ALBUMIN 2.9 g/dL (3.4-5.0); CALCIUM 8.3 mg/dL (8.5-10.1); CREATININE 1.3 mg/dL (0.7-1.3); TOTAL BILIRUBIN 0.3 mg/dL (0.2-1.0); TOTAL PROTEIN 6.6 g/dL (6.4-8.2)
[2020-03-08 11:50] LABS: POTASSIUM 4.3 mmol/L (3.5-5.1)
[2020-03-08 11:51] LABS: URINE BILIRUBIN NEGATIVE (Negative); URINE BLOOD 3+ (Negative); URINE CLARITY CLEAR; URINE COLOR YELLOW; URINE GLUCOSE-RANDOM* NEGATIVE (Negative); URINE KETONES NEGATIVE (Negative); URINE LEUKOCYTES-REFLEX NEGATIVE (Negative); URINE NITRITE-REFLEX NEGATIVE (Negative); URINE PROTEIN (DIPSTICK) NEGATIVE (Negative); URINE SPECIFIC GRAVITY 1.025 (1.005-1.035); URINE UROBILINOGEN 0.2 E.U./dl (0.2-1.0)
[2020-03-08 12:03] LABS: ABSOLUTE NEUTROPHILS 1.1 thou/uL (1.4-8.2); ATYPICAL LYMPHS 8 %; PLATELET COUNT 63 thou/uL (150-400); PLATELET ESTIMATE DECREASED
[2020-03-08 12:05] LABS: SQUAMOUS 0-3 Few /LPF (0-3)
[2020-03-08 12:06] LABS: AMORPHOUS URATES Moderate /LPF (None Seen); BACTERIA-REFLEX 1-9 Few /HPF (None Seen); CASTS None Seen /LPF (None Seen); URINE WBC-REFLEX 0-5 Rare /HPF (0-5)
[2020-03-08 12:06] LABS: HCO3 29.6 mmol/L (22.0-26.0); PO2 91.7 mmHg (80.0-100.0); sO2 93.8 % (92.0-98.0)
[2020-03-08 12:07] LABS: PCO2 89.2 mmHg (35.0-45.0); pH 7.139 (7.360-7.450)
[2020-03-08 14:11] LABS: BE(vivo) -3.2 mmol/L (-2 to +3); HCO3 27.6 mmol/L (22.0-26.0); PO2 126.3 mmHg (80.0-100.0); sO2 97.1 % (92.0-98.0)
[2020-03-08 16:04] LABS: PROTIME 10.2 Seconds (9.3-11.4)
--- NOTE | 2020-03-08 16:48 | NUR ---
CONSULTED TO PLACE A CENTRAL LINE FOR A PATIENT IN ER. THE PATIENT IS NONRESPONSIVE. CONSENT PER MEDICAL NECCESSITY BY DR. TABARSE WAS NOTED. THE RIGHT JUGULAR VEIN WAS WIDLEY PATENT. A #6F TRIPLE LUMEN CENTRAL LINE WAS PLACED PER HOSPITAL POLICY AFTER A BEDSIDE TIMEOUT WAS COMPLETED. THE LINE 25CM WAS ADVANCED WITHOUT DIFFICULTY TO 6CM EXTERNAL. A STAT CHEST XRAY CONFIRMED LINE IN APPROPRIATE POSITION
[2020-03-08 17:43] LABS: BE(vivo) 1.1 mmol/L (-2 to +3); HCO3 34.3 mmol/L (22.0-26.0); PO2 192.1 mmHg (80.0-100.0); sO2 98.6 % (92.0-98.0)
[2020-03-08 17:48] LABS: PCO2 128.7 mmHg (35.0-45.0); pH 7.043 (7.360-7.450)
--- NOTE | 2020-03-08 20:31 | NUR ---
PER [facility] DC ISOLATION FOR COVID-19
--- NOTE | 2020-03-08 20:41 | NUR ---
I SPOKE TO PATIENT'S DAUGHTER WHO CONFIRMED SHE IS READY TO PURSUE COMFORT CARE MEASURES AFTER HER DISCUSSION WITH DR COTO. DR MARLENE AGUILAR CALLED ME TO CONFIRM, NEW ORDERS RECEIVED.
[2020-03-09 04:21] VITALS: BP 00/00
--- NOTE | 2020-03-09 04:21 | NUR ---
TIME OF DEATHPRONOUNCED WITH DR. MEEKS AT BEDSIDE
--- NOTE | 2020-03-09 07:53 | EKG ---
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1935 Requested By: Sheldon Lincoln Order Number: [id number] MD: Ronny Johns Measurements Intervals [place] Rate: 95 P: GA: QRS: 23 QRSD: 88 T: 221 QT: 530 QTc: 667 Interpretive Statements Atrial fibrillation Ventricular premature complex Low voltage, extremity and precordial leads Nonspecific T wave abnormality Prolonged QT interval Lead(s) III were not used for morphology analysis Compared to ECG 10/17/2019 12:54:47 Ventricular premature complex(es) now present Electronically Signed On 03-09-2020 7:53:08 TECHNICAL INSTRUCTOR COURSE DEVELOPER by Ronny Johns [email or web address] <ELECTRONICALLY SIGNED> By: Ronny Johns MD, FACC 03/09/20 [id number] Ronny Johns MD, [facility] /EPI
== END 2020-03-09 04:21 ==
LOC: ER 10:34 → EROBS 12:51 → ER 03-09 04:21
PROVIDERS: Emergency Medicine; Hospitalist
DX: A41.9 Sepsis, unspecified organism (principal); Z20.828 Contact with and (suspected) exposure to other viral communicable diseases; J96.00 Acute respiratory failure, unspecified whether with hypoxia or hypercapnia; E78.5 Hyperlipidemia, unspecified; I12.9 Hypertensive chronic kidney disease with stage 1 through stage 4 chronic kidney disease, or unspecified chronic kidney disease; E11.22 Type 2 diabetes mellitus with diabetic chronic kidney disease; N18.9 Chronic kidney disease, unspecified; Z86.2 Personal history of diseases of the blood and blood-forming organs and certain disorders involving the immune mechanism; Z79.899 Other long term (current) drug therapy